=== PATIENT | male | born 1995 | race Caucasian/White ===

== ENCOUNTER 2019-01-31 00:23 | Emergency (ER) | payer BC, OTHER ==
[~2019-01-31] VITALS: Ht 190.5 cm; Wt 88.5 kg
[2019-01-31 00:23] VITALS: BP 109/79
[2019-01-31 00:50] VITALS: BP 109/79
== END 2019-01-31 00:50 ==
LOC: MED 00:23
DX: Z02.89 Encounter for other administrative examinations (principal); F10.129 Alcohol abuse with intoxication, unspecified; V49.9XXA Car occupant (driver) (passenger) injured in unspecified traffic accident, initial encounter; Y93.89 Activity, other specified; Y92.410 Unspecified street and highway as the place of occurrence of the external cause; Y99.8 Other external cause status
CPT/HCPCS: 99283